=== PATIENT | male | born 1945 | race African-American/Black ===

== ENCOUNTER 2025-03-04 18:42 | Emergency (ER) | payer MEDICARE, BC, OTHER ==
[~2025-03-04] VITALS: Ht 193 cm; Wt 131.0 kg
[2025-03-04] MEDS: SODIUM CHLORIDE 0.9% (SEPSIS BOLUS) IV ONE (21:16)
[2025-03-04] MEDS: CEFTRIAXONE 1GM/50ML 50 ML IV ONE (21:21)
[2025-03-04] MEDS: METHYLPREDNISOLONE SOD SUCC 125MG/2ML (ACT-O-VIAL) IV STA (21:21)
[2025-03-04 21:24] LABS: BASOPHILS % 0.5 % (0.0-2.0); HEMATOCRIT. 33.6 % (42.0-52.0); HEMOGLOBIN. 10.6 g/dL (14.0-18.0); LYMPHOCYTES % 26.5 % (20.0-50.0); MEAN CORPUSCULAR HEMOGLOBIN 26.1 pg (28.0-32.0); MEAN CORPUSCULAR HGB CONC 31.6 g/dL (31.0-37.0); MEAN CORPUSCULAR VOLUME 82.5 fL (80.0-94.0); MEAN PLATELET VOLUME 9.7 fl (7.4-10.4); MONOCYTES % 7.5 % (2.0-8.0); NEUTROPHILS % 62.5 % (40.0-76.0); PLATELET 186 x1000/uL (130-400); RED BLOOD CELL COUNT 4.07 mill/uL (4.7-6.1); RED CELL DISTRIBUTION WIDTH 19.7 % (11.6-14.6); WHITE BLOOD COUNT 6.9 x1000/uL (4.5-11.0)
[2025-03-04 21:29] LABS: CHLORIDE 106 mEq/L (98-107); POTASSIUM 3.4 mEq/L (3.5-5.1); SODIUM 143 mEq/L (136-145)
[2025-03-04 21:30] LABS: CARBON DIOXIDE 28 mEq/L (21-32)
[2025-03-04 21:31] LABS: CALCIUM 9.5 mg/dL (8.7-10.4)
[2025-03-04 21:32] LABS: INR 1.2
[2025-03-04] MEDS: ALBUTEROL (0.083%) 2.5MG/3ML NEB HHN SCH (21:32)
[2025-03-04] MEDS: IPRATROPIUM BROMIDE (0.02%) 0.5MG/2.5ML NEB HHN STA (21:32)
[2025-03-04 21:35] VITALS: PULSE 118; RESP 20; O2SAT 96
[2025-03-04 21:36] LABS: CREATININE 2.7 mg/dL (0.6-1.3); GLUCOSE 101 mg/dL (70-105); TROPONIN I HIGH SENSITIVITY 15 ng/L (3.0-53); UREA NITROGEN BLOOD 39 mg/dL (9-23)
[2025-03-04 21:37] LABS: ALANINE AMINOTRANSFERASE 26 IU/L (10-49); ALBUMIN 3.9 g/dL (3.2-4.8); ASPARTATE AMINOTRANSFERASE 16 IU/L (<34)
[2025-03-04 21:38] LABS: BILIRUBIN DIRECT 0.2 mg/dL (<=3.0); BILIRUBIN TOTAL 0.5 mg/dL (0.1-1.0); PROTEIN TOTAL 7.4 g/dL (6.0-8.3)
[2025-03-04 21:42] LABS: LACTIC ACID 2.5 mmol/L (0.4-2.0)
[2025-03-04 21:47] LABS: INFLUENZA TYPE A Presumptive Negative (Pres. Neg.); INFLUENZA TYPE B Presumptive Negative (Pres. Neg.)
[2025-03-04] MEDS: AZITHROMYCIN 500MG/250ML 250 ML IV ONE (21:59)
[2025-03-04 22:05] VITALS: PULSE 98; RESP 20; O2SAT 97
[2025-03-04 22:35] VITALS: PULSE 98; RESP 20; O2SAT 98
[2025-03-04 23:16] LABS: TROPONIN I HIGH SENSITIVITY 15 ng/L (3.0-53)
[2025-03-04 23:40] VITALS: TEMP 37.1
[2025-03-05] MEDS ORDERED: ACETAMINOPHEN 325MG TABLET PO PRN ×2
[2025-03-05] MEDS ORDERED: ONDANSETRON HCL 4MG/2ML INJ IV PRN
[2025-03-05] MEDS ORDERED: CLONIDINE 0.1MG TABLET PO PRN
[2025-03-05] MEDS ORDERED: IPRATROPIUM/ALBUTEROL 0.5-3(2.5)MG/3ML NEB HHN SCH
[2025-03-05 00:01] VITALS: TEMP 98.8
[2025-03-05 00:55] VITALS: BP 113/69; PULSE 146; RESP 20; O2SAT 99
== END 2025-03-05 01:00 | disposition left against medical advice (07) ==
LOC: ER 18:42 → EDBEDREQ 23:13 → EDBEDREQSVC 23:13 → EDBEDREQTM 23:13 → CANRESERV 23:39 → ENRESERV 23:39 → ER 03-05 01:00
DX: J20.9 Acute bronchitis, unspecified (principal); J18.9 Pneumonia, unspecified organism; I10 Essential (primary) hypertension; E78.00 Pure hypercholesterolemia, unspecified; I48.91 Unspecified atrial fibrillation; Z87.891 Personal history of nicotine dependence; Z86.73 Personal history of transient ischemic attack (TIA), and cerebral infarction without residual deficits
CPT/HCPCS: 99291; 96365; 71045; 96367; 96375; 80076; 80048; 83880; 83605; 83690; 85025; 85610; 87040; 84484; 87804 ×2; 36415; 84145; 94640; 93005; 98960; J2919; J0456; J0696; J7030; 94070; 94664; 96376